=== PATIENT | male | born 1990 | race Caucasian/White ===

== ENCOUNTER 2021-12-01 22:45 | Emergency (ER) | payer OTHER ==
[~2021-12-01] VITALS: Ht 165.1 cm; Wt 68.0 kg
[2021-12-02 00:22] LABS: BASOPHILS % 0.3 % (0.0-2.0); EOSINOPHILS % 1.3 % (0.0-5.0); HEMATOCRIT. 44.5 % (42.0-52.0); HEMOGLOBIN. 14.7 g/dL (14.0-18.0); LYMPHOCYTES % 15.1 % (20.0-50.0); MEAN CORPUSCULAR HEMOGLOBIN 28.2 pg (28.0-32.0); MEAN CORPUSCULAR VOLUME 85.1 fL (80.0-94.0); MEAN PLATELET VOLUME 7.7 fl (7.4-10.4); MONOCYTES % 5.1 % (2.0-8.0); NEUTROPHILS % 78.2 % (40.0-76.0); PLATELET 192 x1000/uL (130-400); RED BLOOD CELL COUNT 5.23 mill/uL (4.7-6.1); RED CELL DISTRIBUTION WIDTH 13.6 % (11.6-14.6)
[2021-12-02 01:15] LABS: CHLORIDE 104 mEq/L (98-107)
[2021-12-02] MEDS ORDERED: TETANUS, DIPHTHERIA, PERTUSSIS VAC/PF 0.5ML (>10YR OLD) IM ONE ×2 (02:30)
[2021-12-02 02:55] VITALS: BP 121/62
[2021-12-02 07:37] LABS: HEPATITIS B SURFACE AB 538.6 mIU/mL
[2021-12-02 07:48] LABS: HEPATITIS B SURFACE ANTIGEN NEGATIVE
[2021-12-03 07:11] LABS: HIV SCREEN 4G Non Reactive (Non Reactive)
== END 2021-12-02 02:56 | disposition home or self-care (01) ==
LOC: ER 22:45
DX: S60.410A Abrasion of right index finger, initial encounter (principal); R52 Pain, unspecified; W46.0XXA Contact with hypodermic needle, initial encounter; Y93.89 Activity, other specified; Y92.89 Other specified places as the place of occurrence of the external cause; Y99.0 Civilian activity done for income or pay
CPT/HCPCS: 36415; 80053; 85025; 86703; 87389; 90471; 90715; 99283